=== PATIENT | male | born 1985 | race Two or more races ===

== ENCOUNTER 2016-07-16 21:43 | Emergency (ER) | payer BC ==
[~2016-07-16] VITALS: Ht 165.1 cm; Wt 81.6 kg
[2016-07-16 22:47] VITALS: BP 142/74
[2016-07-16] MEDS ORDERED: BENZ100C PO (23:01)
[2016-07-16] MEDS ORDERED: AMOX875T PO (23:01)
[2016-07-16] MEDS ORDERED: GUAI-107 PO (23:01)
[2016-07-16] MEDS ORDERED: OFLO5DRO7 EACH EAR (23:01)
--- NOTE | 2016-07-16 23:01 | PHYS DOC ---
Adult General Chief Complaint Chief Complaint: FLU SYMPTOM HPI HPI Patient is a 31 year old male with no significant medical history who presents with coughing and nasal congestion that began 4 days ago. Patient denies any fever. Patient is also complaining of a sore throat for 4 days. Patient is also complaining of bilateral ear pain and draining that began today. Patient denies swimming. Review of Systems Review of Systems Constitutional: fever Eyes: Denies change in visual acuity, redness, or eye pain [] HENT: Bilateral ear pain and draining nasal congestion, sore throat [] Respiratory: cough Cardiovascular: No additional information not addressed in HPI [] GI: Denies abdominal pain, nausea, vomiting, bloody stools or diarrhea [] : Denies dysuria or hematuria [] Musculoskeletal: Denies back pain or joint pain [] Integument: Denies rash or skin lesions [] Neurologic: Denies headache, focal weakness or sensory changes [] Endocrine: Denies polyuria or polydipsia [] Physical Exam Physical Exam Constitutional: Well developed, well nourished, no acute distress, non-toxic appearance. [] HENT: Normocephalic, atraumatic, bilateral external ears normal, oropharynx moist, no oral exudates, nose normal. [] Bilateral TM are moderately injected. The ear canals have mild amount of yellow exudate. Tragus is painful bilaterally. Eyes: PERRLA, EOMI, conjunctiva normal, no discharge. [] Neck: Normal range of motion, no tenderness, supple, no stridor. [] Cardiovascular:Heart rate regular rhythm, no murmur [] Lungs & Thorax: Bilateral breath sounds clear to auscultation [] Abdomen: Bowel sounds normal, soft, no tenderness, no masses, no pulsatile masses. [] Skin: Warm, dry, no erythema, no rash. [] Back: No tenderness, no CVA tenderness. [] Extremities: No tenderness, no cyanosis, no clubbing, ROM intact, no edema. [] Neurologic: Alert and oriented X 3, normal motor function, normal sensory function, no focal deficits noted. [] Psychologic: Affect normal, judgement normal, mood normal. [] EKG EKG [] Radiology/Procedures Radiology/Procedures [] Course & Med Decision Making Course & Med Decision Making Pertinent Labs and Imaging studies reviewed. (See chart for details) Patient has bilateral otitis media, otitis externa, and an upper respiratory infection including coughing. Discharged with amoxicillin for 10 days. Discharged with ofloxacin, ultram and Tessalon Perles. Follow-up with PCP in 1- 2 weeks. Gary Disclaimer Gary Disclaimer This electronic medical record was generated, in whole or in part, using a voice recognition dictation system. Departure Departure Impression: Primary Impression: Otitis media Additional Impressions: Cough Otitis externa Upper respiratory infection Disposition: HOME, SELF-CARE Condition: STABLE Referrals: NO PCP (PCP) Follow-up with your doctor in one week Patient Instructions: Cough, Adult, [id number], Otitis Externa, Otitis Media , Adult, Upper Respiratory Infection, Adult Additional Instructions: You were seen for an ear infection coughing and an upper respiratory infection. Take the prescribed medicines as ordered ensure you complete antibiotics. Scripts Ofloxacin (OFLOXACIN) 5 Ml Drops 5 DROP EACH EAR BID, #10 ML Prov: TEJ HESS APRN 07/16/16 Amoxicillin (AMOXICILLIN) 875 Mg Tablet 1 TAB PO BID, #20 TAB Prov: TEJ HESS APRN 07/16/16 Benzonatate (TESSALON PERLE) 100 Mg Capsule 1 CAP PO TID, #30 CAP Prov: TEJ HESS APRN 07/16/16 Guaifenesin/Dextromethorphan (MUCINEX DM ER 600-30 MG TABLET) 1 Each Tab.er.12h 1 TAB PO PRN Q12HRS, #20 TAB Prov: TEJ HESS APRN 07/16/16 Problem Qualifiers Primary Impression: Otitis media Otitis media type: other nonsuppurative Laterality: bilateral Chronicity: acute Recurrence: not specified as recurrent Qualified Codes: H65.193 - Other acute nonsuppurative otitis media, bilateral Additional Impressions: Otitis externa Otitis externa type: other infective Laterality: bilateral Chronicity: acute Qualified Codes: H60.393 - Other infective otitis externa, bilateral Upper respiratory infection URI type: unspecified URI Qualified Codes: J06.9 - Acute upper respiratory infection, unspecified TEJ HESS APRN July 16, 2016 23:01
== END 2016-07-16 23:15 | disposition home or self-care (01) ==
LOC: ER 21:43
DX: J06.9 Acute upper respiratory infection, unspecified (principal); H60.393 Other infective otitis externa, bilateral; H66.93 Otitis media, unspecified, bilateral
CPT/HCPCS: 99283